=== PATIENT | female | born 1950 | race Caucasian/White ===

== ENCOUNTER 2017-02-11 15:53 | Emergency (ER) | payer MEDICARE, OTHER ==
[2017-02-11 16:10] VITALS: BP 128/83
[2017-02-11] MEDS ORDERED: BUFFERED LIDOCAINE 10 ML SYRINGE SUBQ STA (17:06)
[2017-02-11] MEDS ORDERED: BUFFERED LIDOCAINE 10 ML SYRINGE ONE (17:10)
--- NOTE | 2017-02-11 17:34 | ED Physician Documentation ---
History of Present Illness - Stated complaint Stated Complaint: FEMALE /POST OP - Chief complaint Chief Complaint: General - Additonal information Additional information: Patient is a 67-year-old female with a history of COPD who had an excisional removal of a tumor in her left buttock on 02 February. Today the sutures fell out. It sounds like she had a running subcuticular or dermal suture that came out. Since of the present the area of been bleeding moderately. She denies any preceding symptoms such as redness or warmth in the area. She denies any systemic complaints. Review of systems: For pertinent positive and negatives in the review of systems please see the history of present illness, otherwise all other systems have been reviewed and are negative. Dragon disclaimer: Parts of this medical record were created using voice recognition technology. Because of the inherent limitations of this system, occasional same sounding word substitutions do occur and persist despite proofreading. Please read the document for context. Review of Systems Constitutional: denies: Fever, Chills Skin: reports: Lesions PD PAST MEDICAL HISTORY - Past Medical History Past Medical History: Yes Cardiovascular: High cholesterol - Past Surgical History Past Surgical History: Yes General: Appendectomy Ortho: Hip replacement, Shoulder arthroplasty /FOOD PROCESSOR: Hysterectomy - Present Medications Home Medications: Ambulatory Orders Medication Instructions Recorded Confirmed Doxycycline Hyclate [Vibramycin] 100 mg PO BID #14 capsule 02/11/17 Hydrocodone/Acetaminophen 1 tab PO QID 02/11/17 02/11/17 [Hydrocodon-Acetaminophn 10-325] Simvastatin 0 mg PO DAILY 02/11/17 02/11/17 oxyCODONE/ACET 5/325 [Percocet 5 1 each PO Q4-6H PRN #16 tablet 02/11/17 mg/325 mg] - Allergies Allergies/Adverse Reactions: Allergies Allergy/AdvReac Type Severity Reaction Status Date / Time iodine Allergy Unknown Verified 02/11/17 16:10 - Social History Does the pt smoke?: Yes Smoking Status: Current every day smoker PD ED PE NORMAL - General General: Alert and oriented X 3, No acute distress, Well developed/nourished - Derm Derm: Other (Patient is a well-appearing female who presents with bleeding from a postop incision and her left gluteal cleft. A benign tumors removed at the end of last month. For approximately little over a week ago. On examination she has a 2-1/2 cm open wound that is bleeding moderately. There is a adherent clot and a partially protruding wound hematoma.) Results - Vitals Vitals: Vital Signs - 24 hr 02/11/17 16:07 Temperature 36.7 C Heart Rate 116 H Respiratory 18 Rate Blood Pressure 128/83 H O2 Saturation 89 L Oxygen O2 Source Room air PD MEDICAL DECISION MAKING - ED course ED course: This patient presents with a left gluteal incisional wound that has opened up. It is bleeding moderately. There is a large clot adherent to the wound. Despite the distance of time from the initial incision the bleeding required surgical closure. The patient was thoroughly cleansed with Hibiclens area was anesthetized with buffered lidocaine and 4 single interrupted sutures of Ethicon were used to reapproximate the wound margins. There is no evidence of cellulitis clinically. It sounds like she had a running subcuticular suture that failed. Patient tolerated procedure well. She was told that she is an increased risk for wound infection and therefore will be placed on doxycycline. Disposition: To home Clinical impression: 1. Left gluteus surgical incision bleeding status post suture closure in emergency department Departure - Departure Disposition: 01 Home, Self Care Clinical Impression: Postoperative bleeding from incision Condition: Good Instructions: Incision Care Follow-Up: your,physician [Other] Prescriptions: oxyCODONE/ACET 5/325 [Percocet 5 mg/325 mg] 1 each PO Q4-6H PRN #16 tablet PRN Reason: Pain Doxycycline Hyclate [Vibramycin] 100 mg PO BID #14 capsule
== END 2017-02-11 17:30 | disposition home or self-care (01) ==
LOC: ED 15:53
DX: L76.22 Postprocedural hemorrhage of skin and subcutaneous tissue following other procedure (principal); F17.200 Nicotine dependence, unspecified, uncomplicated; J44.9 Chronic obstructive pulmonary disease, unspecified
CPT/HCPCS: 12001; 99283

== ENCOUNTER 2018-03-04 21:50 | Outpatient (CLI) | payer MEDICARE | END 2018-03-04 21:51 | disposition critical access hospital (66) | LOC: EMS 21:50 | PROVIDERS: ATTEND Surgery | DX: I46.9 Cardiac arrest, cause unspecified (principal) | CPT/HCPCS: A0425; A0427 ==

== ENCOUNTER 2018-03-04 22:05 | Emergency (ER) | payer MEDICARE ==
--- NOTE | 2018-03-04 22:13 | ED Physician Documentation ---
PD HPI CPR - Stated complaint Stated Complaint: INTUBATION - Chief complaint Chief Complaint: Cardiac - History obtained from History obtained from: Family, EMS - History of Present Illness Timing - onset: Enter time (21:04), Today Preceding symptoms: Dyspnea Contributing factors: Other (COPD). No: CAD Recently seen: Not recently seen Witnessed: Arrest witnessed Fall: No fall Bystander CPR: Bystander CPR, Downtime before CPR (up to 11 minutes (see below)) EMS findings: Unresponsive, Agonal breathing, Pulseless, PEA Treatment DIRECTOR OF MANUFACTURING: CPR, Intubated, Epi, Other (versed) Advanced directive: No advanced directive - Additional information Additional information: patient BIBA, intubated. HPI from medics and family ( and son in ED). says patient was in NAD when he saw her approximately 15 minutes prior to deteriorating at 9:04 PM. She was in another room at approximately 9:04 PM when she called out to him for help. He found patient to be in severe respiratory distress and altered mental status (less responsive). He called 911 , although he had difficulty getting a signal and thus took approximately 11 minutes (9:15 PM) before he was able to contact 911. By that time, she had lost consciousness; he gave CPR according to instructions by dye line operator. Patient's son subsequently arrived and took over CPR. When medics arrived, they found patient to be unconscious with agonal respirations and in PEA (medic says approximately 20 BPM and appeared to be agonal beats). CPR continued by medics, IV placed, intubated, and given 1 mg epinephrine. After epinephrine, patient had ROSC with heart rate 120s with palpable, correlating pulse, blood pressure 150/palp. Medics detected crepitus on CPR s/o possible bony injury from CPR that was delivered prior to there arrival. En route to ED, patient eventually began to appear uncomfortable due to intubation (although no purposeful movements, but appeared to be gagging), and thus given versed (4.5 mg total in 2 divided doses). Review of Systems Unable to obtain: Intubated PD PAST MEDICAL HISTORY - Past Medical History Cardiovascular: High cholesterol Respiratory: COPD (oxygen-dependent) - Past Surgical History Past Surgical History: Yes General: Appendectomy Ortho: Hip replacement, Shoulder arthroplasty /AUDIO/VISUAL MANAGER: Hysterectomy - Present Medications Home Medications: Ambulatory Orders Medication Instructions Recorded Confirmed Doxycycline Hyclate [Vibramycin] 100 mg PO BID #14 capsule 02/11/17 Hydrocodone/Acetaminophen 1 tab PO QID 02/11/17 02/11/17 [Hydrocodon-Acetaminophn 10-325] Simvastatin 0 mg PO DAILY 02/11/17 02/11/17 oxyCODONE/ACET 5/325 [Percocet 5 1 each PO Q4-6H PRN #16 tablet 02/11/17 mg/325 mg] - Allergies Allergies/Adverse Reactions: Allergies Allergy/AdvReac Type Severity Reaction Status Date / Time iodine Allergy Unknown Verified 03/04/18 22:12 shellfish derived Allergy Unknown Verified 03/04/18 22:12 - Living Situation Living Situation: reports: With spouse/s.o. Living Arrangement: reports: At home - Social History Does the pt smoke?: Yes Smoking Status: Current every day smoker PD ED PE NORMAL - Vitals Vital signs reviewed: Yes - General General: Well developed/nourished, Other (intubated) - HEENT HEENT: Other (right pupil round, reactive, 4->2mm; left pupil round, reactive, 5 ->3mm (1 mm discrepency)) - Cardiac Cardiac: No murmur, Other (regular rhythm, tachycardic rate) - Respiratory Respiratory: No respiratory distress, Other (distant breath sounds bilaterally) - Abdomen Abdomen: Soft, Non distended Results - Vitals Vitals: Vital Signs - 24 hr 03/04/18 03/04/18 03/04/18 22:07 22:19 22:54 Temperature 35.9 C L Heart Rate 151 H 156 H 123 H Respiratory 14 16 15 Rate Blood Pressure 110/95 H 111/88 H 90/53 L O2 Saturation 96 89 L 99 03/04/18 03/04/18 03/04/18 23:00 23:12 23:26 Temperature Heart Rate 118 H 104 H Respiratory 13 16 Rate Blood Pressure 52/41 L 70/49 L 84/56 L O2 Saturation 99 98 03/04/18 03/05/18 03/05/18 23:46 00:08 00:12 Temperature 35.2 C L 35.2 C L 35.3 C L Heart Rate 101 H 104 H 106 H Respiratory 14 16 15 Rate Blood Pressure 92/71 97/74 99/76 O2 Saturation 100 100 100 03/05/18 03/05/1803/05/18 00:28 00:49 01:01 Temperature 35.5 C L 35.6 C L Heart Rate 104 H 101 H 97 Respiratory 14 14 16 Rate Blood Pressure 98/75 82/71 L 106/79 O2 Saturation 100 100 100 03/05/18 03/05/18 03/05/18 01:13 01:29 01:50 Temperature 35.8 C L Heart Rate 101 H 101 H 104 H Respiratory 16 14 16 Rate Blood Pressure 100/72 90/72 97/83 H O2 Saturation 97 100 99 03/05/18 03/05/18 03/05/18 02:01 02:18 02:30 Temperature 36.0 C L Heart Rate 108 H 107 H 103 H Respiratory 15 18 16 Rate Blood Pressure 115/85 H 93/78 85/76 L O2 Saturation 95 96 97 03/05/18 02:41 Temperature 36.2 C L Heart Rate 100 Respiratory 14 Rate Blood Pressure 81/71 L O2 Saturation 99 Oxygen O2 Source Mechanical ventilator Oxygen Flow Rate 15 - EKG (time done) No standard instances Rate: Rate (enter#) (148), Tachy Rhythm: Sinus tachycardia [place]: Normal Intervals: Normal ND QRS: Normal Ischemia: Normal ST segments, Hyperacute T waves (V3, V4) - Labs Labs: Laboratory Tests 03/04/18 03/04/18 03/04/18 10:15 10:15 10:15 WBC 13.1 H RBC 3.85 L Hgb 11.8 L Hct 37.2 MCV 96.7 MCH 30.6 MCHC 31.7 L RDW 13.2 Plt Count 254 MPV 7.3 L Neut # (Auto) 8.5 H Lymph # (Auto) 3.6 H [place] # (Auto) 0.7 Eos # (Auto) 0.3 Baso # (Auto) 0.1 Absolute Nucleated RBC 0.01 Nucleated RBC % 0.1 PT 12.1 INR 1.1 APTT 44.5 H D-Dimer Bld Gas Analysis Time Sample Site ABG pH ABG pCO2 ABG pO2 ABG HCO3 ABG Total CO2 ABG O2 Saturation ABG Base Excess O2 Delivery Device Vent Mode FiO2 Tidal Volume PEEP IPAP Sodium 139 Potassium 4.7 Chloride 99 L Carbon Dioxide 30 Anion Gap 10.0 BUN 13 Creatinine 0.8 Estimated GFR (MDRD) 71 L Glucose 231 H Lactic Acid Calcium 9.1 Total Bilirubin 0.6 AST 153 H ALT 88 H Alkaline Phosphatase 89 Total Creatine Kinase 303 H CK-MB (CK-2) Troponin I B-Natriuretic Peptide Total Protein 6.4 L Albumin 3.5 Globulin 2.9 Albumin/Globulin Ratio 1.2 Lipase 27 03/04/18 03/04/18 03/04/18 10:15 10:15 22:19 WBC RBC Hgb Hct MCV MCH MCHC RDW Plt Count MPV Neut # (Auto) Lymph # (Auto) [place] # (Auto) Eos # (Auto) Baso # (Auto) Absolute Nucleated RBC Nucleated RBC % PT INR APTT D-Dimer > 1050.0 H Bld Gas Analysis Time Sample Site ABG pH ABG pCO2 ABG pO2 ABG HCO3 ABG Total CO2 ABG O2 Saturation ABG Base Excess O2 Delivery Device Vent Mode FiO2 Tidal Volume PEEP IPAP Sodium Potassium Chloride Carbon Dioxide Anion Gap BUN Creatinine Estimated GFR (MDRD) Glucose Lactic Acid Calcium Total Bilirubin AST ALT Alkaline Phosphatase Total Creatine Kinase CK-MB (CK-2) 11.6 H Troponin I < 0.04 B-Natriuretic Peptide 115 H Total Protein Albumin Globulin Albumin/Globulin Ratio Lipase 03/04/18 03/05/18 03/05/18 22:52 01:05 01:55 WBC RBC Hgb Hct MCV MCH MCHC RDW Plt Count MPV Neut # (Auto) Lymph # (Auto) [place] # (Auto) Eos # (Auto) Baso # (Auto) Absolute Nucleated RBC Nucleated RBC % PT INR APTT D-Dimer Bld Gas Analysis Time 0140 Sample Site RIGHT BRACHIAL ABG pH 7.39 ABG pCO2 45 ABG pO2 145 H ABG HCO3 27.4 H ABG Total CO2 29.0 ABG O2 Saturation 99 H ABG Base Excess 2.0 O2 Delivery Device VENTILATOR Vent Mode SIMV FiO2 60.00 Tidal Volume 500 PEEP 1 IPAP 3 Sodium Potassium Chloride Carbon Dioxide Anion Gap BUN Creatinine Estimated GFR (MDRD) Glucose Lactic Acid 4.9 H* 3.8 H* Calcium Total Bilirubin AST ALT Alkaline Phosphatase Total Creatine Kinase CK-MB (CK-2) Troponin I B-Natriuretic Peptide Total Protein Albumin Globulin Albumin/Globulin Ratio Lipase - Rads (name of study) CT head Radiology: Prelim report reviewed, See rad report chest xray Radiology: Prelim report reviewed, See rad report PD MEDICAL DECISION MAKING - ED course Complexity details: reviewed old records (only one previous [facility] ED visit, one year ago for post-operative wound evaluation), reviewed results, re-evaluated patient, considered differential, d/w family ED course: I had extensive conversations with family regarding how aggressive patient would want to be with treatment. says patient would not want to be on a ventilator or other heroic measures taken if there is no reasonable chance of recovery. Patient required repeat dose of versed in ED for increasing movement, and subsequently started on propofol drip which had to be titrated up due to increasing movement, including opening eyes and some evidence of purposeful movement. As there is a reasonable chance of recovery at this point, plan is to continue on ventilator and transfer to higher level of care (post-CPR ROSC). [facility] is full (no beds available), and thus I next contacted [facility]. While waiting to hear from [facility], it was realized that patient has [place] coverage, and thus I then spoke with the [facility] physician. She then contacted [facility] and arranged for transfer to [facility] , Dr. Yi accepting. A second CXR performed during ED stay for NGT placement; two xrays were done for this. The first xray suggested NGT was in right lung, but a second xray that was performed less than a minute later did not seem to demonstrate any NGT. The NGT was removed after these readings were concerning for incorrect placement of the NGT. A subsequent attempt to place NGT caused patient significant distress (coughing, gagging) and thus further attempts were aborted. - Critical Care Time(min): 70 Time Includes: Direct patient care, Review records, Reassess patient, Document care, Coordinate care, Family consult for tx dec, See progress note Data interpretation: Labs, Pulse ox, ABG, CXR, See progress note Procedures included in critical care time: See progress note Procedures excluded from critical care time: Intubation - Sepsis Event Vital Signs: Vital Signs - 24 hr 03/04/18 03/04/18 03/04/18 22:07 22:19 22:54 Temperature 35.9 C L Heart Rate 151 H 156 H 123 H Respiratory 14 16 15 Rate Blood Pressure 110/95 H 111/88 H 90/53 L O2 Saturation 96 89 L 99 03/04/18 03/04/18 03/04/18 23:00 23:12 23:26 Temperature Heart Rate 118 H 104 H Respiratory 13 16 Rate Blood Pressure 52/41 L 70/49 L 84/56 L O2 Saturation 99 98 03/04/18 03/05/18 03/05/18 23:46 00:08 00:12 Temperature 35.2 C L 35.2 C L 35.3 C L Heart Rate 101 H 104 H 106 H Respiratory 14 16 15 Rate Blood Pressure 92/71 97/74 99/76 O2 Saturation 100 100 100 03/05/18 03/05/18 03/05/18 00:28 00:49 01:01 Temperature 35.5 C L 35.6 C L Heart Rate 104 H 101 H 97 Respiratory 14 14 16 Rate Blood Pressure 98/75 82/71 L 106/79 O2 Saturation 100 100 100 03/05/18 03/05/18 03/05/18 01:13 01:29 01:50 Temperature 35.8 C L Heart Rate 101 H 101 H 104 H Respiratory 16 14 16 Rate Blood Pressure 100/72 90/72 97/83 H O2 Saturation 97 100 99 03/05/18 03/05/18 03/05/18 02:01 02:18 02:30 Temperature 36.0 C L Heart Rate 108 H 107 H 103 H Respiratory 15 18 16 Rate Blood Pressure 115/85 H 93/78 85/76 L O2 Saturation 95 96 97 03/05/18 02:41 Temperature 36.2 C L Heart Rate 100 Respiratory 14 Rate Blood Pressure 81/71 L O2 Saturation 99 Oxygen O2 Source Mechanical ventilator Oxygen Flow Rate 15 Departure - Departure Disposition: 02 Transfer Acute Care Hosp Clinical Impression: Cardiopulmonary arrest with successful resuscitation, Endotracheally intubated Condition: Stable Discharge Date/Time: 03/05/18 03:29
[2018-03-04 22:27] LABS: BASOPHILS # (AUTO) 0.1 10^3/uL (0.0-0.1); BASOPHILS % (AUTO) 0.5 %; EOSINOPHILS # (AUTO) 0.3 10^3/uL (0.0-0.7); EOSINOPHILS % (AUTO) 2.2 %; HGB - HEMOGLOBIN 11.8 g/dL (12.0-16.0); LYMPHOCYTES # (AUTO) 3.6 10^3/uL (1.5-3.5); LYMPHOCYTES % (AUTO) 27.7 %; MEAN CORPUSCULAR HEMOGLOBIN 30.6 pg (27.0-31.0); MEAN CORPUSCULAR HGB CONC 31.7 g/dL (32.0-36.0); MEAN CORPUSCULAR VOLUME 96.7 fL (81.0-99.0); MEAN PLATELET VOLUME 7.3 fL (7.9-10.8); MONOCYTES # (AUTO) 0.7 10^3/uL (0.0-1.0); MONOCYTES % (AUTO) 5.3 %; NEUTROPHILS # (AUTO) 8.5 10^3/uL (1.5-6.6); NEUTROPHILS % (AUTO) 64.3 %; PLT - PLATELET COUNT 254 10^3/uL (130-450); RED BLOOD COUNT 3.85 10^6/uL (4.20-5.40); RED CELL DISTRIBUTION WIDTH 13.2 % (12.0-15.0); WHITE BLOOD COUNT 13.1 x10^3/uL (4.8-10.8)
[2018-03-04] MEDS ORDERED: MIDAZOLAM 2 MG/2 ML VIAL IVP STA (22:35)
[2018-03-04 22:36] LABS: ALBUMIN 3.5 g/dL (3.2-5.5); ALBUMIN/GLOBULIN RATIO 1.2 (1.0-2.2); BILIRUBIN,TOTAL 0.6 mg/dL (0.2-1.0); CALCIUM 9.1 mg/dL (8.5-10.3); CREATININE 0.8 mg/dL (0.4-1.0); TOTAL PROTEIN 6.4 g/dL (6.7-8.2)
[2018-03-04 22:38] LABS: INR 1.1 (0.8-1.2); PT - PROTHROMBIN TIME 12.1 secs (9.9-12.6)
[2018-03-04 22:40] LABS: TROPONIN I < 0.04 ng/mL (<0.49)
--- NOTE | 2018-03-04 22:40 | XRAY Report ---
Reason: INTUBATION, S/P CPR Procedure Date: 03/04/2018 Accession Number: [id number] / [id number] Procedure: XR - Chest 1 View X-Ray CPT Code: 51007 FULL RESULT: EXAM: CHEST RADIOGRAPHY EXAM DATE: 03/04/2018 10:17 PM. CLINICAL HISTORY: INTUBATION, S/P CPR. COMPARISON: None. TECHNIQUE: 1 view. FINDINGS: Lungs/Pleura: Diffuse interstitial opacities with upper lobe predominance. There is no lobar consolidation. No definite pleural effusion or pneumothorax. Mediastinum: Within exam limitations, the cardiomediastinal contour is normal. Other: Tip of endotracheal tube 6 cm above the chandrika. IMPRESSION: 1. Interstitial opacities suggesting pulmonary edema versus interstitial lung disease. 2. Endotracheal tube tip 6 cm above the chandrika. RADIA
[2018-03-04 22:42] LABS: CREATINE KINASE MB 11.6 ng/mL (0.6-6.3)
[2018-03-04] MEDS ORDERED: SODIUM CHLORIDE 0.9% 1,000 ML IV ONE ×2 (22:56→23:13)
--- NOTE | 2018-03-04 23:37 | CT Report ---
Reason: AMS Procedure Date: 03/04/2018 Accession Number: [id number] / [id number] Procedure: CT - Head W/O CPT Code: FULL RESULT: EXAM: CT HEAD EXAM DATE: 03/04/2018 10:47 PM. CLINICAL HISTORY: AMS. COMPARISON: None. TECHNIQUE: Multiaxial CT images were obtained from the foramen magnum to the vertex. Reformats: Sagittal and coronal. IV contrast: None. In accordance with CT protocol optimization, one or more of the following dose reduction techniques were utilized for this exam: automated exposure control, adjustment of mA and/or KV based on patient size, or use of iterative reconstructive technique. FINDINGS: Parenchyma: No intraparenchymal hemorrhage. No evidence of mass, midline shift, or CT findings of infarction. [place]-white differentiation is distinct. Extraaxial Spaces: Normal for age. No subdural or epidural collections identified. There is a 1.9 x 1.6 x 1.1 cm hyperdense lesion with rim calcification arising from the anterior falx, compatible with a parafalcine meningioma. Ventricles: Normal in size and position. Sinuses and Orbits: Air-fluid level in the sphenoid sinus. Unremarkable orbits. Bones: No evidence of fracture or calvarial defect. Other: None. IMPRESSION: No evidence of acute hemorrhage or mass effect. Anterior parafalcine meningioma. Sphenoid sinus disease. RADIA
[2018-03-04] MEDS ORDERED: PROPOFOL 1000 MG/100 ML 100 ML IV ONE (23:59)
[2018-03-05] MEDS ORDERED: PROPOFOL 1000 MG/100 ML 100 ML IV STA (00:05)
--- NOTE | 2018-03-05 00:34 | XRAY Report ---
Reason: NG tube placement confirmation Procedure Date: 03/05/2018 Accession Number: [id number] / [id number] Procedure: XR - Chest 1 View X-Ray CPT Code: 21427 FULL RESULT: EXAM: CHEST RADIOGRAPHY EXAM DATE: 03/05/2018 12:04 AM. CLINICAL HISTORY: NG tube placement confirmation. COMPARISON: - - - - - 03/04/2018. TECHNIQUE: 1 view. FINDINGS: Lungs/Pleura: Diffuse interstitial opacities similar to the previous exam. Lung volumes are increased. Nasogastric tube is malpositioned placed into the right mainstem bronchus into the periphery of the right lung base. On the second view which includes lower chest the tube however is not visualized. Stable endotracheal tube position 6 cm above the chandrika. Mediastinum: Within exam limitations, the cardiomediastinal contour is normal. Other: None. IMPRESSION: 1. Apparent malpositioned nasogastric tube placed to periphery of right lung base. This may have been repositioned, correlate clinically. 2. No signal change in diffuse lung opacities suggesting edema. RADIA The above findings were discussed with Jasson Yeh by Dr. Rick Higgins at 00:33 hrs on 03/05/18.
[2018-03-05 01:44] LABS: ABG HCO3 27.4 mmol/L (22.0-26.0); ABG OXYGEN SATURATION 99 % (94-98); ABG PCO2 45 mmHg (34-45); ABG PH 7.39 (7.35-7.45); ABG PO2 145 mmHg (80-100)
[2018-03-05] MEDS ORDERED: SODIUM CHLORIDE 0.9% 500 ML IV STA (02:28)
[2018-03-05] MEDS ORDERED: SODIUM CHLORIDE 0.9% 1,000 ML IV STA (02:28)
[2018-03-05 02:42] VITALS: BP 81/71
== END 2018-03-05 03:29 | disposition short-term general hospital (02) ==
LOC: ED 22:05
DX: I46.9 Cardiac arrest, cause unspecified (principal); R00.0 Tachycardia, unspecified; J44.9 Chronic obstructive pulmonary disease, unspecified; Z99.81 Dependence on supplemental oxygen; F17.200 Nicotine dependence, unspecified, uncomplicated
CPT/HCPCS: 36415; 36600; 70450; 71045; 80053; 82550; 82553; 82803; 83605; 83690; 83880; 84484; 85025; 85379; 85610; 85730; 93005; 96361; 96374; 99285; 99291